=== PATIENT | male | born 1985 | race African-American/Black ===

== ENCOUNTER 2016-12-08 18:45 | Emergency (ER) | payer MEDICAID ==
[~2016-12-08] VITALS: Ht 175.3 cm; Wt 69.4 kg
[2016-12-08 18:45] VITALS: BP 119/73
== END 2016-12-08 19:21 | disposition home or self-care (01) ==
LOC: ER 18:49
DX: L03.012 Cellulitis of left finger (principal); J45.909 Unspecified asthma, uncomplicated
CPT/HCPCS: 99283; A4606; Z7610